=== PATIENT | female | born 1995 ===

== ENCOUNTER 2017-05-09 21:35 | Emergency (ER) | payer MEDICAID ==
[2017-05-09 21:55] VITALS: BP 124/80; PULSE 88; RESP 16; TEMP 98.2; O2SAT 99
[2017-05-09] MEDS ORDERED: Naproxen 500 MG TAB PO STA (22:08)
--- NOTE | 2017-05-09 22:32 | ED PDOC ---
Upper Extremity Pain/Injury Time Seen by Provider: 05/09/17 22:00 Chief Complaint (Nursing): Upper Extremity Problem/Injury Chief Complaint (Provider): left shoulder injury History Per: Patient (21 y/o female here with left shoulder pain x 1 week not improving despite advil. No falls. Denies any heavy lifting. Unsure if related to manner in which she was sleeping.) History/Exam Limitations: no limitations Past Medical History Reviewed: Historical Data, Nursing Documentation, Vital Signs Vital Signs: Last Vital Signs Temp 98.2 F 05/09/17 21:53 Pulse 88 05/09/17 21:53 Resp 16 05/09/17 21:53 BP 124/80 05/09/17 21:53 Pulse Ox 99 05/09/17 21:53 - Family History Family History: States: No Known Family Hx - Home Medications Home Medications: Ambulatory Orders Medication Instructions Recorded Naproxen 1 tab PO Q12 PRN #14 tab 05/09/17 - Allergies Allergies/Adverse Reactions: Allergies Allergy/AdvReac Type Severity Reaction Status Date / Time No Known Allergies Allergy Verified 05/09/17 21:55 Review of Systems ROS Statement: Except As Marked, All Systems Reviewed And Found Negative Physical Exam - Reviewed Nursing Documentation Reviewed: Yes Vital Signs Reviewed: Yes - Physical Exam Appears: Positive for: Well, Non-toxic, No Acute Distress Head Exam: Positive for: ATRAUMATIC, NORMAL INSPECTION, NORMOCEPHALIC Skin: Positive for: Normal Color, Warm, DRY Eye Exam: Positive for: EOMI, Normal appearance, PERRL ENT: Positive for: Normal ENT Inspection Neck: Positive for: Normal, Painless ROM Cardiovascular/Chest: Positive for: Regular Rate, Rhythm Respiratory: Positive for: CNT, Normal Breath Sounds Gastrointestinal/Abdominal: Positive for: Normal Exam, Bowel Sounds, Soft Back: Positive for: Normal Inspection Extremity: Positive for: Normal ROM, Tenderness (tenderness left anterior shoulder; FROM) Neurologic/Psych: Positive for: Alert, Oriented - Laboratory Results Urine POC: Negative - ECG O2 Sat by Pulse Oximetry: 99 - Progress ED Course And Treament: xry shoulder: no acute fx Disposition - Clinical Impression Clinical Impression: Shoulder pain - Disposition Referrals: Julio Delgado MD [Staff Provider] - Disposition: Routine/Home Disposition Time: 23:08 Condition: FAIR Prescriptions: Naproxen 1 tab PO Q12 PRN #14 tab PRN Reason: Pain, Moderate (4-7) Instructions: Rotator Cuff Injury (GEN) Forms: [employer] (Gabonese), [facility] ED School/Work Excuse
[2017-05-09] MEDS ORDERED: Naproxen 500 MG TAB PO ONE (22:48)
--- NOTE | 2017-05-10 10:34 | RAD ---
PROCEDURE: Radiographs of the Left Shoulder HISTORY: shoulder injury COMPARISON: None available. FINDINGS: BONES: No acute displaced fracture. The distal clavicle and underlying ribs appear intact. JOINTS: No acute dislocation. SOFT TISSUES: Soft tissues appear unremarkable. No evidence of radiopaque foreign body. IMPRESSION: No acute displaced fracture or dislocation evident. If symptoms persist or if there is continued clinical concern, x-ray follow-up in 7-10 days should be considered.
== END 2017-05-09 23:15 | disposition home or self-care (01) ==
LOC: H.ER 21:35
DX: M25.512 Pain in left shoulder (principal)